=== PATIENT | male | born 1945 | race Two or more races ===

== ENCOUNTER 2017-12-02 09:51 | Outpatient (CLI) | payer OTHER | END 2017-12-02 10:03 | disposition home or self-care (01) | LOC: SONOGRAMA 09:51 → MAMO-SONO 10:15 | DX: E04.1 Nontoxic single thyroid nodule (principal) ==

== ENCOUNTER 2018-03-27 08:41 | Outpatient (CLI) | payer OTHER | END 2018-03-27 08:42 | disposition home or self-care (01) | LOC: SONOGRAMA 08:41 | DX: E04.8 Other specified nontoxic goiter (principal) ==

== ENCOUNTER → 2018-11-28 | Outpatient (CLI) | payer OTHER | END | disposition home or self-care (01) | LOC: NUCLEAR 13:00 | DX: I73.9 Peripheral vascular disease, unspecified (principal) ==

== ENCOUNTER → 2018-12-01 | Outpatient (CLI) | payer OTHER | END | disposition home or self-care (01) | LOC: NUCLEAR 10:27 | DX: I87.2 Venous insufficiency (chronic) (peripheral) (principal) ==